=== PATIENT | female | born 1990 | race Hispanic/Latino ===

== ENCOUNTER 2018-07-12 18:23 | Emergency (ER) | payer MEDICAID ==
[2018-07-12 19:18] LABS: Hematocrit 45.4 % (30.3-42.9); Hemoglobin 14.8 gm/dl (10.1-14.3); Mean Corpuscular HGB Conc 33 % (30-34); Mean Corpuscular Hemoglobin 29 pg (28-32); Mean Corpuscular Volume 87 fl (79-97); Platelet Count 368 K/mm3 (140-440); Red Blood Count 5.21 M/mm3 (3.65-5.03); Red Cell Distribution Width 13.9 % (13.2-15.2)
[2018-07-12 19:20] LABS: Basophils % (Auto) 0.5 % (0.0-1.8); Eosinophils % (Auto) 0.9 % (0.0-4.3); Lymphocytes % (Auto) 31.4 % (13.4-35.0); Monocytes % (Auto) 6.5 % (0.0-7.3)
[2018-07-12 19:21] LABS: Basophils # (Auto) 0.1 K/mm3 (0.0-0.1); Eosinophils # (Auto) 0.1 K/mm3 (0.0-0.4); Monocytes # (Auto) 0.8 K/mm3 (0.0-0.8)
[2018-07-12 19:35] LABS: Alanine Aminotransferase 12 units/L (7-56); Albumin 4.4 g/dL (3.9-5); BUN/Creatinine Ratio 20; Blood Urea Nitrogen 14 mg/dL (7-17); Calcium 9.4 mg/dL (8.4-10.2); Hemolysis Index 9
--- NOTE | 2018-07-12 20:51 | Emergency Department Report ---
ED Abdominal Pain HPI - General Chief Complaint: Abdominal Pain Stated Complaint: ABD PAIN Time Seen by Provider: 07/12/18 20:20 Source: patient Mode of arrival: Ambulatory Limitations: No Limitations - History of Present Illness Initial Comments: 28-year-old female presents to the hospital complains of abdominal pain intermittent/ingrown hairs to various parts of her body. Patient has had lower abdominal pain 1 month described as intermittent twisting sensation. Pain is left lower quadrant with palpation. No leaving faxes. Positive nausea and a little vaginal discharge. Denies vomiting, diarrhea, fever, dysuria, or hematuria. Patient has not had a menstrual cycle and 2 months and has a history of irregular cycles. Patient complains of ingrown hair/mini abscesses under her breasts and gluteal area that come and go. PMD: None - Related Data Previous Rx's Medication Instructions Recorded Last Taken Type traMADol [Ultram 50 MG tab] 50 mg PO Q6HR PRN #20 tablet 09/07/15 Unknown Rx Ibuprofen [Motrin] 800 mg PO Q8HR PRN #30 tablet 07/12/18 Unknown Rx Sulfamethoxazole/Trimethoprim 1 each PO BID #6 tablet 07/12/18 Unknown Rx [Bactrim DS TAB] Allergies Allergy/AdvReac Type Severity Reaction Status Date / Time No Known Allergies Allergy Verified 09/07/15 12:25 ED Review of Systems ROS: Stated complaint: ABD PAIN Other details as noted in HPI Comment: All other systems reviewed and negative ED Past Medical Hx - Past Medical History Previous Medical History?: Yes Additional medical history: had gestational diabetes - Surgical History Past Surgical History?: Yes Additional Surgical History: T & A. tubes in ears. - Social History Smoking Status: Never Smoker Substance Use Type: Marijuana - Medications Home Medications: Home Medications Medication Instructions Recorded Confirmed Last Taken Type traMADol [Ultram 50 MG tab] 50 mg PO Q6HR PRN #20 tablet 09/07/15 Unknown Rx Ibuprofen [Motrin] 800 mg PO Q8HR PRN #30 tablet 07/12/18 Unknown Rx Sulfamethoxazole/Trimethoprim 1 each PO BID #6 tablet 07/12/18 Unknown Rx [Bactrim DS TAB] ED Physical Exam - General Limitations: No Limitations - Other Other exam information: General: No limitations, patient is alert in no acute distress Head exam: Atraumatic, normocephalic Eyes exam: Normal appearance ENT: Moist mucous membrane, normal oropharynx Neck exam: Normal inspection, full range of motion, no meningismus nontender Respiratory exam: Clear to auscultation bilateral, no wheezes, rales, crackles Cardiovascular: Normal rate and rhythm, normal heart sounds Abdomen: Soft, nondistended, mild left lower quadrant tenderness, with normal bowel sounds, no rebound, or guarding : Extremity: Full range of motion normal inspection no deformity Back: Normal Inspection, full range of motion, no tenderness Neurologic: Alert, oriented x3, cranial nerves intact, no motor or sensory deficit Psychiatric: normal affect, normal mood Skin: Warm, dry, intact ED Course Vital Signs 07/12/18 07/12/18 07/12/18 18:36 20:10 20:16 Temperature 98.6 F Pulse Rate 87 89 75 Respiratory 18 18 Rate Blood Pressure 105/70 109/73 O2 Sat by Pulse 97 Oximetry 07/12/18 07/12/18 07/12/18 20:30 20:46 21:00 Temperature Pulse Rate 79 68 62 Respiratory 19 11 L 26 H Rate Blood Pressure 98/58 98/58 100/59 O2 Sat by Pulse Oximetry 07/12/18 07/12/18 07/12/18 21:16 21:30 21:46 Temperature Pulse Rate 69 74 79 Respiratory 17 13 20 Rate Blood Pressure 98/58 99/54 100/59 O2 Sat by Pulse Oximetry ED Medical Decision Making - Lab Data Result diagrams: 07/12/18 18:50 07/12/18 18:50 Lab Results 07/12/18 07/12/18 07/12/18 Range/Units 18:50 18:50 18:50 WBC 12.7 H (4.5-11.0) K/mm3 RBC 5.21 H (3.65-5.03) M/mm3 Hgb 14.8 H (10.1-14.3) gm/dl Hct 45.4 H (30.3-42.9) % MCV 87 (79-97) fl MCH 29 (28-32) pg MCHC 33 (30-34) % RDW 13.9 (13.2-15.2) % Plt Count 368 (140-440) K/mm3 Lymph % (Auto) 31.4 (13.4-35.0) % Franklin % (Auto) 6.5 (0.0-7.3) % Eos % (Auto) 0.9 (0.0-4.3) % Baso % (Auto) 0.5 (0.0-1.8) % Lymph # 4.0 (1.2-5.4) K/mm3 Franklin # 0.8 (0.0-0.8) K/mm3 Eos # 0.1 (0.0-0.4) K/mm3 Baso # 0.1 (0.0-0.1) K/mm3 Add Manual Diff Complete Seg Neutrophils % 60.7 (40.0-70.0) % Seg Neutrophils # 7.7 (1.8-7.7) K/mm3 Sodium 137 (137-145) mmol/L Potassium 4.1 (3.6-5.0) mmol/L Chloride 103.1 (98-107) mmol/L Carbon Dioxide 20 L (22-30) mmol/L Anion Gap 18 mmol/L BUN 14 (7-17) mg/dL Creatinine 0.7 (0.7-1.2) mg/dL Estimated GFR > 60 ml/min BUN/Creatinine Ratio 20 % Glucose 103 H (65-100) mg/dL Calcium 9.4 (8.4-10.2) mg/dL Total Bilirubin 0.20 (0.1-1.2) mg/dL AST 16 (5-40) units/L ALT 12 (7-56) units/L Alkaline Phosphatase 76 (35-129) units/L Total Protein 8.0 (6.3-8.2) g/dL Albumin 4.4 (3.9-5) g/dL Albumin/Globulin Ratio 1.2 % HCG, Qual Negative (Negative) Urine Color (Yellow) Urine Turbidity (Clear) Urine pH (5.0-7.0) Ur Specific [place] (1.003-1.030) Urine Protein (Negative) mg/dL Urine Glucose (UA) (Negative) mg/dL Urine Ketones (Negative) mg/dL Urine Blood (Negative) Urine Nitrite (Negative) Urine Bilirubin (Negative) Urine Urobilinogen (<2.0) mg/dL Ur Leukocyte Esterase (Negative) Urine WBC (Auto) (0.0-6.0) /HPF Urine RBC (Auto) (0.0-6.0) /HPF U Epithel Cells (Auto) (0-13.0) /HPF Calcium Oxalate Crystal Urine Mucus /HPF 07/12/18 Range/Units 20:25 WBC (4.5-11.0) K/mm3 RBC (3.65-5.03) M/mm3 Hgb (10.1-14.3) gm/dl Hct (30.3-42.9) % MCV (79-97) fl MCH (28-32) pg MCHC (30-34) % RDW (13.2-15.2) % Plt Count (140-440) K/mm3 Lymph % (Auto) (13.4-35.0) % Franklin % (Auto) (0.0-7.3) % Eos % (Auto) (0.0-4.3) % Baso % (Auto) (0.0-1.8) % Lymph # (1.2-5.4) K/mm3 Franklin # (0.0-0.8) K/mm3 Eos # (0.0-0.4) K/mm3 Baso # (0.0-0.1) K/mm3 Add Manual Diff Seg Neutrophils % (40.0-70.0) % Seg Neutrophils # (1.8-7.7) K/mm3 Sodium (137-145) mmol/L Potassium (3.6-5.0) mmol/L Chloride (98-107) mmol/L Carbon Dioxide (22-30) mmol/L Anion Gap mmol/L BUN (7-17) mg/dL Creatinine (0.7-1.2) mg/dL Estimated GFR ml/min BUN/Creatinine Ratio % Glucose (65-100) mg/dL Calcium (8.4-10.2) mg/dL Total Bilirubin (0.1-1.2) mg/dL AST (5-40) units/L ALT (7-56) units/L Alkaline Phosphatase (35-129) units/L Total Protein (6.3-8.2) g/dL Albumin (3.9-5) g/dL Albumin/Globulin Ratio % HCG, Qual (Negative) Urine Color Yellow (Yellow) Urine Turbidity Cloudy (Clear) Urine pH 5.0 (5.0-7.0) Ur Specific [place] 1.024 (1.003-1.030) Urine Protein 30 mg/dl (Negative) mg/dL Urine Glucose (UA) Neg (Negative) mg/dL Urine Ketones Neg (Negative) mg/dL Urine Blood Neg (Negative) Urine Nitrite Neg (Negative) Urine Bilirubin Neg (Negative) Urine Urobilinogen < 2.0 (<2.0) mg/dL Ur Leukocyte Esterase Tr (Negative) Urine WBC (Auto) 9.0 H (0.0-6.0) /HPF Urine RBC (Auto) 6.0 (0.0-6.0) /HPF U Epithel Cells (Auto) 55.0 H (0-13.0) /HPF Calcium Oxalate Crystal 2+ Urine Mucus 2+ /HPF - Medical Decision Making Abdominal pain 1 month Negative UA has elevated ABC and high at that they have cells was likely a contaminated sample. Calcium in urine without symptoms of renal colic Patient will be covered with Bactrim for 38 Blood prep less than 20 clue cells and neg Motrin for pain as needed and [employer] follow-up encouraged. Patient reports a history of a ovarian cyst. Patient is nontoxic appearing and no suspicion for torsion. She can obtain ultrasound as outpatient via [employer] follow-up Ingrown hairs Patient shaves No significant abscess. Encouraged not to shave and to exfoliate - Differential Diagnosis vaginitis, cervicitis, UTI, MRSA, ingrown hair, abscesses, ovarian cyst Critical Care Time: No Critical care attestation.: If time is entered above; I have spent that time in minutes in the direct care of this critically ill patient, excluding procedure time. ED Disposition Clinical Impression: LLQ abdominal pain, Urine WBC increased, Ingrown hair Disposition: [id number] TO HOME OR SELFCARE Is pt being admited?: No Does the pt Need Aspirin: No Condition: Stable Instructions: Abdominal Pain (ED), Urinary Tract Infection in Women (ED) Additional Instructions: Take the medication as prescribed. Follow up with your doctor or the doctor/ clinic provided. Return if symptoms worsen as indicated by your discharge instructions Prescriptions: Ibuprofen [Motrin] 800 mg PO Q8HR PRN #30 tablet PRN Reason: Pain, Moderate (4-6) Sulfamethoxazole/Trimethoprim [Bactrim DS TAB] 1 each PO BID #6 tablet Referrals: PRIMARY CARE, [Primary Care Provider] - 3-5 Days [facility] [Provider Group] - 3-5 Days [facility] [Provider Group] - 3-5 Days Time of Disposition: 22:19
[2018-07-12 21:13] LABS: Bilirubin,Urine NEG (Negative); Blood,Urine NEG (Negative); Calcium Oxalate Crystals,Urine 2+; Color,Urine Yellow (Yellow); Mucus,Urine 2+ /HPF; Urobilinogen,Urine < 2.0 mg/dL (<2.0)
[2018-07-12 22:48] VITALS: BP 107/50
== END 2018-07-12 22:47 | disposition home or self-care (01) ==
LOC: ED 18:23
DX: R10.32 Left lower quadrant pain (principal); R82.99 Other abnormal findings in urine; L73.1 Pseudofolliculitis barbae; Z90.89 Acquired absence of other organs; Z96.22 Myringotomy tube(s) status
CPT/HCPCS: 36415; 80053; 81001; 84703; 85025; 87210; 87591; 99284